=== PATIENT | female | born 1940 | race Caucasian/White ===

== ENCOUNTER → 2020-10-27 | Emergency (ER) | payer MEDICARE ==
[~2020-10-27] VITALS: Ht 167.6 cm; Wt 71.8 kg
[~2020-10-27] MED LIST: HYDR-1179 PO; HYDROcodon/IBUPROFEN 7.5/200MG 1 TAB TABLET PO ONE
--- NOTE | 2020-10-27 17:37 | PHYS DOC ---
Past History Past Medical History: Arthritis, High Cholesterol, Hypertension, Hypothyroid General Adult EDM: Chief Complaint: KNEE INJURY HPI: HPI: ".. I here visiting my son.. I dianna twisted this Lt knee other day.. It got better. but I went to get up.. and all sudden severe pain in this Lt. knee .. Patient is a 79 year old female who presents with above hx and complaints of left knee injury. Patient advises she planted her foot the other and did not rotate properly twisting her left knee. This initial injury gradually improved. However today when attempting to rise from a sitting position felt a severe sharp stabbing pain in left knee. Pain is so severe she almost had giveaway weakness. Patient currently locates pain and lateral compartment and posterior. Me does have some noted edema. Distal neurovascular is equal to right foot. Patient is able do straight leg lift. Patient is amatory with a limp. Patient currently visiting her son here from [facility]. Is due to fly out in the next couple days. Patient denies any history of fever or chills. No history of immunosuppression. Does have history of fracture of the right knee in a fall. Patient has past medical history of hypertension hypothyroidism, elevated cholesterol, allergies, and osteoarthritis. Patient does have a primary care doctor and [place] Review of Systems: Review of Systems: Constitutional: Denies fever or chills Eyes: Denies change in visual acuity HENT: Denies nasal congestion or sore throat Respiratory: Denies cough or shortness of breath Cardiovascular: Denies chest pain or edema GI: Denies abdominal pain, nausea, vomiting, bloody stools or diarrhea : Denies dysuria Musculoskeletal: Complains of left knee pain Integument: Denies rash Neurologic: Denies headache, focal weakness or sensory changes Endocrine: Denies polyuria or polydipsia Lymphatic: Denies swollen glands Psychiatric: Denies depression or anxiety Family History: Family History: Noncontributory Current Medications: Current Meds: See nursing for home meds Allergies: Allergies: See nursing Physical Exam: PE: Constitutional: In acute distress, non-toxic appearance. [] HENT: Normocephalic, atraumatic, bilateral external ears normal, oropharynx moist, no oral exudates, nose normal. [] Eyes: PERRLA, EOMI, conjunctiva normal, no discharge. [] Neck: Normal range of motion, no tenderness, supple, no stridor. [] Cardiovascular:Heart rate regular rhythm, no murmur [] Lungs & Thorax: Bilateral breath sounds equal at apex auscultation [] Abdomen: Bowel sounds normal, soft, no tenderness, no masses, no pulsatile masses. [] Skin: Warm, dry, no erythema, no rash. [] Back: No tenderness, no CVA tenderness. [] Extremities: No tenderness, no cyanosis, no clubbing, ROM intact, no edema. [] Except findings in left knee as per HPI Neurologic: Alert and oriented X 3, normal motor function, normal sensory function, no focal deficits noted. [] Psychologic: Affect anxious, judgement normal, mood normal. [] EKG: EKG: [] Radiology/Procedures: Radiology/Procedures: [][place] [id number] IMAGING REPORT Signed PATIENT: MONICA GANDARA CACCOUNT: [id number] : 1940 LOCATION: ER AGE: 79 SEX: F EXAM STATUS: REG ER ORD. PHYSICIAN: AMRITA ARNOLD MD REASON: injury PROCEDURE: KNEE LEFT 4V Right knee 3 views HISTORY: Injury 3 views were taken of the right knee. Additional oblique view was obtained. Ther e is a moderate joint effusion. There is no acute fracture. IMPRESSION: 1. No acute fracture right knee. 2. Moderate joint effusion. Electronically signed by: Doug Adkins MD (10/27/2020 6:27 PM) [facility] DICTATED AND SIGNED BY: DOUG ADKINS MD DATE: 10/27/20 182 CC: AMRITA ARNOLD MD; PCP,UNKNOWN ~MTH0 0 Heart Score: C/O Chest Pain: N/A Risk Factors: Risk Factors: DM, Current or recent (<one month) smoker, HTN, HLP, family history of CAD, obesity. Risk Scores: Score 0 - 3: 2.5% MACE over next 6 weeks - Discharge Home Score 4 - 6: 20.3% MACE over next 6 weeks - Admit for Clinical Observation Score 7 - 10: 72.7% MACE over next 6 weeks - Early Invasive Strategies Course & Med Decision Making: Course & Med Decision Making Pertinent Labs and Imaging studies reviewed. (See chart for details) Patient wear Irineo wrap-note distal neurovascular intact after application of Irineo wrap. Rest. Elevation. Ice packs as needed. Take Tylenol and ibuprofen for pain. For marked pain may take Vicoprofen up to 4 times a day. Follow-up primary care. Return if any concerns. Impression: 1. Lt knee sprain / strain [] Chuckie Disclaimer: Chuckie Disclaimer: This electronic medical record was generated, in whole or in part, using a voice recognition dictation system. Departure Departure: Referrals: PCP,UNKNOWN (PCP) Scripts Hydrocodone/Ibuprofen (HYDROCODONE-IBUPROFEN 7.5-200 ) 1 Each Tablet 1 TAB PO PRN Q6HRS PRN for PAIN, #30 TAB 0 Refills Prov: AMRITA ARNOLD MD 10/27/20 Chuckie Disclaimer This chart was dictated in whole or in part using Voice Recognition software in a busy, high-work load, and often noisy Emergency Department environment. It may contain unintended and wholly unrecognized errors or omissions. AMRITA ARNOLD MD Oct 27, 2020 17:37
[2020-10-27 17:46] VITALS: BP 171/93
--- NOTE | 2020-10-27 18:30 | RAD ---
Right knee 3 views HISTORY: Injury 3 views were taken of the right knee. Additional oblique view was obtained. There is a moderate joint effusion. There is no acute fracture. IMPRESSION: 1. No acute fracture right knee. 2. Moderate joint effusion. Electronically signed by: Doug Miranda MD (10/27/2020 6:27 PM) [facility]
== END | disposition home or self-care (01) ==
LOC: ER 17:22
DX: S83.92XA Sprain of unspecified site of left knee, initial encounter (principal); E78.5 Hyperlipidemia, unspecified; I10 Essential (primary) hypertension; X50.1XXA Overexertion from prolonged static or awkward postures, initial encounter; Y93.89 Activity, other specified; Y92.89 Other specified places as the place of occurrence of the external cause; Y99.8 Other external cause status
CPT/HCPCS: 73564; 99283